=== PATIENT | male | born 1995 | race Caucasian/White ===

== ENCOUNTER 2017-09-07 10:50 | Emergency (ER) | payer OTHER ==
[~2017-09-07] VITALS: Ht 190.5 cm; Wt 90.7 kg
[2017-09-07 11:31] VITALS: BP 121/74
== END 2017-09-07 11:51 | disposition home or self-care (01) ==
LOC: ER 10:50
DX: S39.012A Strain of muscle, fascia and tendon of lower back, initial encounter (principal); X58.XXXA Exposure to other specified factors, initial encounter
CPT/HCPCS: 99282

== ENCOUNTER 2017-09-13 10:38 | Emergency (ER) | payer OTHER ==
[~2017-09-13] VITALS: Ht 190.5 cm; Wt 90.7 kg
--- OUTSIDE RECORDS SUMMARY | 2017-09-13 10:41 | XMS REPORT | Continuity of Care Document ---
Author Author [facility] Organization 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 Problems No problem information available. Medications No medication information available. Social History Smoking Status Start Date Stop Date Current every day smoker Hospital Discharge Instructions No hospital discharge instruction information available. Plan of Care Discharge Date 09/07/17 11:51am Disposition HOME, SELF-CARE Condition at Discharge Stable Instructions/Education Provided Back Pain Forms Provided Work/School Excuse Prescriptions See Medication Section Referrals NONSTAFF Demario Dang EDWARD MD Address: [address] [place] [address] Additional Instructions/Education 1. tylenol and motrin 2. return to ed as needed 3. follow up with orthopedic doctor in 1-2 days without fail Functional Status No functional status information available. Allergies, Adverse Reactions, Alerts No allergy information available. Immunizations No immunization information available. Vital Signs Acute Vital Signs Vital Response Date/Time Temperature (Fahrenheit) 99.0 degrees F (97.6 - 99.5) 09/07/2017 11:31am Pulse Pulse Rate (adult) 60 bpm (60 - 90) 09/07/2017 11:31am Respiratory Rate 18 bpm (12 - 24) 09/07/2017 11:31am Blood Pressure 121/74 mm Hg 09/07/2017 11:31am Height 6 ft 3 in 09/07/2017 11:15am Weight 200 lb 09/07/2017 11:15am Body Mass Index 25.0 kg/m^2 09/07/2017 11:15am Results No relevant diagnostic test, laboratory data and/or discharge summary information available. Procedures No procedure information available. Encounters Encounter Location Arrival/Admit Date Discharge/Depart Date Attending Provider Departed Emergency Room [facility] 09/07/17 10:50am 09/07 11:51am SUKI HURTADO MD
== END 2017-09-13 11:22 | disposition home or self-care (01) ==
LOC: ER 10:38
DX: M54.5 Low back pain (principal); S39.012A Strain of muscle, fascia and tendon of lower back, initial encounter; M62.830 Muscle spasm of back
CPT/HCPCS: 99281